=== PATIENT | female | born 1980 | race Caucasian/White ===

== ENCOUNTER 2020-02-19 18:41 | Emergency (ER) | payer BC ==
[2020-02-19 18:45] VITALS: RESP 18; TEMP 97.6
[2020-02-19 19:46] LABS: Basophils % (A) 1 %; Eosinophils # (A) 0.2 k/uL (0-0.7); Eosinophils % (A) 2 %; HCT 44.1 % (34.0-46.0); HGB 15.1 gm/dL (11.4-16.0); Lymphocytes # (A) 1.7 k/uL (1.0-4.8); Lymphocytes % (A) 25 %; MCHC 34.2 g/dL (31.0-37.0); MCV 87.8 fL (80.0-100.0); Mean Platelet Volume 9.4; Monocytes # (A) 0.4 k/uL (0-1.0); Monocytes % (A) 6 %; Neutrophils # (A) 4.5 k/uL (1.3-7.7); Neutrophils % (A) 66 %; Platelet Count 266 k/uL (150-450); RBC 5.03 m/uL (3.80-5.40); RDW 12.9 % (11.5-15.5); WBC 6.8 k/uL (3.8-10.6)
[2020-02-19 19:54] LABS: Partial Thromboplastin Time 24.4 sec (22.0-30.0); Prothrombin Time 10.2 sec (9.0-12.0)
[2020-02-19 19:56] LABS: ALT 53 U/L (4-34); AST 38 U/L (14-36); African American GFR (CKD) >90 (>60 ml/min/1.73 sqM); Albumin 4.9 g/dL (3.5-5.0); Alkaline Phosphatase 64 U/L (38-126); Anion Gap 9 mmol/L; Blood Urea Nitrogen 10 mg/dL (7-17); Calcium 9.8 mg/dL (8.4-10.2); Carbon Dioxide 26 mmol/L (22-30); Chloride 104 mmol/L (98-107); Glucose 96 mg/dL (74-99); Lipase 75 U/L (23-300); Non-African American GFR(CKD) >90 (>60 ml/min/1.73 sqM); Potassium 3.8 mmol/L (3.5-5.1); Sodium 139 mmol/L (137-145); Total Bilirubin 0.8 mg/dL (0.2-1.3)
--- NOTE | 2020-02-19 20:00 | XR ---
EXAMINATION TYPE: XR chest 2V DATE OF EXAM: 02/19/2020 COMPARISON: None INDICATION: Hematemesis TECHNIQUE: Frontal and lateral views of the chest are obtained. FINDINGS: The heart size is normal. The pulmonary vasculature is normal. The lungs are clear. IMPRESSION: 1. No acute pulmonary process.
--- NOTE | 2020-02-19 20:14 | ED ---
General Adult HPI - General Chief complaint: GI Bleed Stated complaint: vomiting blood Time Seen by Provider: 02/19/20 19:07 Source: patient Mode of arrival: ambulatory Limitations: no limitations - History of Present Illness Initial comments: Patient is a 39-year-old female presenting to the emergency Department with complaints of a single episode of hematemesis that occurred about 2 hours prior to arrival. Patient states she woke up and had her normal coffee but then has been feeling an upset stomach for most the day, low appetite. Patient states about 2 hours ago she lay down and felt nausea developing and had a single episode of vomit with "about half a cup of blood" mixed in. She states she only had a single episode, no other episodes of vomiting. She denies ever having this in the past. She denies any abdominal pain, no chest pain. She denies history of GERD. She does not drink alcohol. She does not take blood thinners. She admits to history of cholecystectomy, no other abdominal surgeries. She has no other significant past medical history, she takes no medications, other than ibuprofen for her knee pain. She denies any recent fever or chills. She has no other complaints at this time. - Related Data Home Medications Medication Instructions Recorded Confirmed No Known Home Medications 02/19/20 02/19/20 Allergies Allergy/AdvReac Type Severity Reaction Status Date / Time No Known Allergies Allergy Verified 02/19/20 19:56 Review of Systems ROS Statement: Those systems with pertinent positive or pertinent negative responses have been documented in the HPI. ROS Other: All systems not noted in ROS Statement are negative. Past Medical History Past Medical History: Hyperlipidemia History of Any Multi-Drug Resistant Organisms: None Reported Past Surgical History: Section, Cholecystectomy Past Psychological History: No Psychological Hx Reported Smoking Status: Never smoker Past Alcohol Use History: None Reported Past Drug Use History: None Reported General Exam - General Exam Comments Initial Comments: GENERAL: Patient is well-developed and well-nourished. Patient is nontoxic and in no acute distress. HEAD: Atraumatic, normocephalic. EYES: Pupils equal round and reactive to light, extraocular movements intact, sclera anicteric, conjunctiva are normal. Eyelids were unremarkable. ENT: TMs normal, nares patent, oropharynx clear without exudates. Moist mucous membranes. NECK: Normal range of motion, supple without lymphadenopathy or JVD. LUNGS: Unlabored respirations. Breath sounds clear to auscultation bilaterally and equal. No wheezes rales or rhonchi. HEART: Regular rate and rhythm without murmurs, rubs or gallops. ABDOMEN: Soft, nontender, normoactive bowel sounds. No guarding, no rebound. No masses appreciated. : Deferred MUSCULOSKELETAL: Normal extremities with adequate strength and normal range of motion, no pitting or edema. No clubbing or cyanosis. NEUROLOGICAL: Patient is alert and oriented x 3. Motor and sensory are also intact. Cranial nerves II through XII grossly intact. Symmetrical smile. Normal speech, normal gait. PSYCH: Normal mood, normal affect. SKIN: Warm, Dry, normal turgor, no rashes or lesions noted. Limitations: no limitations Course Vital Signs 02/19/20 02/19/20 18:41 20:50 Temperature 97.6 F 97.6 F Pulse Rate 90 81 Respiratory 18 18 Rate Blood Pressure 141/80 137/97 O2 Sat by Pulse 96 100 Oximetry Medical Decision Making - Medical Decision Making Patient is a 39-year-old female presenting with a single episode of hematemesis about 2 hours prior to arrival. She said no other events of this. Her vital signs are stable upon arrival. She denies taking any medications, no blood thinners, she does not drink alcohol. She denies pain anywhere, including no chest pain or no abdominal pain. Labs are completely unremarkable, stable hemoglobin. Chest x-ray shows no acute process. I discussed these findings with the patient. Patient remained stable the ER, she continues to feel some mild nausea but no pain. I will send her home with some Zofran for additional nausea. She can also follow up with GI. Strict return parameters were discussed with the patient and she verbalized understanding. Case discussed with Dr. Schrader. - Lab Data Result diagrams: 02/19/20 19:37 02/19/20 19:37 Lab Results 02/19/20 02/19/20 02/19/20 Range/Units 19:37 19:37 19:37 WBC 6.8 (3.8-10.6) k/uL RBC 5.03 (3.80-5.40) m/uL Hgb 15.1 (11.4-16.0) gm/dL Hct 44.1 (34.0-46.0) % MCV 87.8 (80.0-100.0) fL MCH 30.0 (25.0-35.0) pg MCHC 34.2 (31.0-37.0) g/dL RDW 12.9 (11.5-15.5) % Plt Count 266 (150-450) k/uL MPV 9.4 Neutrophils % 66 % Lymphocytes % 25 % Monocytes % 6 % Eosinophils % 2 % Basophils % 1 % Neutrophils # 4.5 (1.3-7.7) k/uL Lymphocytes # 1.7 (1.0-4.8) k/uL Monocytes # 0.4 (0-1.0) k/uL Eosinophils # 0.2 (0-0.7) k/uL Basophils # 0.0 (0-0.2) k/uL PT 10.2 (9.0-12.0) sec INR 1.0 (<1.2) APTT 24.4 (22.0-30.0) sec Sodium 139 (137-145) mmol/L Potassium 3.8 (3.5-5.1) mmol/L Chloride 104 (98-107) mmol/L Carbon Dioxide 26 (22-30) mmol/L Anion Gap 9 mmol/L BUN 10 (7-17) mg/dL Creatinine 0.69 (0.52-1.04) mg/dL Est GFR (CKD-EPI)AfAm >90 (>60 ml/min/1.73 sqM) Est GFR (CKD-EPI)NonAf >90 (>60 ml/min/1.73 sqM) Glucose 96 (74-99) mg/dL Calcium 9.8 (8.4-10.2) mg/dL Total Bilirubin 0.8 (0.2-1.3) mg/dL AST 38 H (14-36) U/L ALT 53 H (4-34) U/L Alkaline Phosphatase 64 (38-126) U/L Total Protein 8.0 (6.3-8.2) g/dL Albumin 4.9 (3.5-5.0) g/dL Lipase 75 (23-300) U/L Disposition Clinical Impression: Hematemesis, Nausea Disposition: HOME SELF-CARE Condition: Stable Instructions (If sedation given, give patient instructions): Hematemesis (ED) Additional Instructions: Please return to the Emergency Department if symptoms worsen or any other concerns. May take Zofran as needed for nausea. If symptoms worsen please return to the ER. Follow up with GI doctor as discussed. Is patient prescribed a controlled substance at d/c from ED?: No Referrals: None,Stated [Primary Care Provider] - 1-2 days Luca Trevino MD [STAFF PHYSICIAN] - 1-2 days
[2020-02-19] MEDS ORDERED: ONDANSETRON 4 MG ODT STARTER PACK 2 TAB BTL PO STA (20:36)
[2020-02-19 20:55] VITALS: BP 137/97; PULSE 81
== END 2020-02-19 20:56 | disposition home or self-care (01) ==
LOC: EC 18:41
DX: K92.0 Hematemesis (principal); Z90.49 Acquired absence of other specified parts of digestive tract; Z98.890 Other specified postprocedural states
CPT/HCPCS: 36415; 71046; 80053; 83690; 85025; 85610; 85730; 99285

== ENCOUNTER 2020-05-13 15:54 | Emergency (ER) | payer BC ==
--- NOTE | 2020-05-13 17:36 | ED ---
General Adult HPI - General Source: patient Mode of arrival: ambulatory Limitations: no limitations <Isaiah Pacheco - Last Filed: 05/13/20 17:36> <Solis Sanders - Last Filed: 05/13/20 20:05> - General Chief complaint: Upper Respiratory Infection Stated complaint: COVID+/SOB - History of Present Illness Initial comments: medical screening note: Covid Positive 5 days presenting to the emergency department for a dry cough. has not taken antipyretic since this morning. Denies chest pain but reports mild shortness of breath. (Isaiah Pacheco) - Related Data Previous Rx's Medication Instructions Recorded Dexamethasone 6 mg PO DAILY #7 tablet 05/13/20 guaiFENesin-Coden 100-10MG/5ML 5 - 10 ml PO Q6H PRN 3 Days #120 ml 05/13/20 [Robitussin AC] Allergies Allergy/AdvReac Type Severity Reaction Status Date / Time No Known Allergies Allergy Verified 05/13/20 16:40 Review of Systems ROS Other: All systems not noted in ROS Statement are negative. <Isaiah Pacheco - Last Filed: 05/13/20 17:36> ROS Other: All systems not noted in ROS Statement are negative. <Solis Sanders - Last Filed: 05/13/20 20:05> ROS Statement: Those systems with pertinent positive or pertinent negative responses have been documented in the HPI. Past Medical History Past Medical History: Hyperlipidemia History of Any Multi-Drug Resistant Organisms: None Reported Past Surgical History: Section, Cholecystectomy Past Psychological History: No Psychological Hx Reported Smoking Status: Former smoker Past Alcohol Use History: None Reported Past Drug Use History: None Reported <Isaiah Pacheco - Last Filed: 05/13/20 17:36> General Exam Limitations: no limitations <Isaiah Pacheco - Last Filed: 05/13/20 17:36> - General Exam Comments Initial Comments: General: Well-developed, no distress HEENT: Normocephalic/atraumatic, PERLL, pharynx erythema, TM clear Chest/Lungs: Normal respirations, lungs clear to auscultation, continuous nonproductive cough Cardiac: Regular rate and rhythm Abdomen/GI: Soft nontender, Musculoskeletal: Nontender, full range of motion Skin: Warmth, no rashes or lesions, no diaphoresis Neurologic: AAO x 3, normal gait Psychiatric: Mood and affect normal, judgment normal (Isaiah Pacheco) Course Vital Signs 05/13/20 05/13/20 16:43 19:13 Temperature 102.2 F H 103.1 F H Pulse Rate 106 H 111 H Respiratory 18 20 Rate Blood Pressure 127/85 O2 Sat by Pulse 97 93 L Oximetry Medical Decision Making <Solis Sanders - Last Filed: 05/13/20 20:05> - Medical Decision Making Is a 39-year-old female came to the emergency department for worsening cough and shortness of breath. The patient had an oxygen saturation 94-95% at rest. I do get her up and ambulate her and her oxygen saturation didn't drop into the 90-93 range area and it occasionally would dip down to 91 however would quickly come back up to 94-95 at rest. Chest x-ray was consistent with Coban pneumonia. The patient was given a dose of Decadron here and will be sent home with Decadron 6 g daily. She was also given Robitussin for home. The patient does have a pulse oximeter at home and is going to monitor her pulse ox. I told her that if she got into the 80s that she needed to return emergency from her promptly for reevaluation. I did offer her bamlanivimab however she refused stated that she did not want that medication. Patient was given her first dose of Decadron here along with some Tylenol. We'll follow up with her primary doctor. All questions answered. (Solis Sanders) Disposition <Isaiah Pacheco - Last Filed: 05/13/20 17:36> Is patient prescribed a controlled substance at d/c from ED?: Yes If prescribed controlled substance>3 days was MAPS reviewed?: Prescribed <3 Days <Solis Sanders - Last Filed: 05/13/20 20:05> Clinical Impression: Pneumonia due to COVID-19 virus Disposition: HOME SELF-CARE Condition: Good Instructions (If sedation given, give patient instructions): Coronavirus Disease 2019 (COVID-19) Prescriptions: Dexamethasone 6 mg PO DAILY #7 tablet guaiFENesin-Coden 100-10MG/5ML [Robitussin AC] 5 - 10 ml PO Q6H PRN 3 Days #120 ml PRN Reason: Cough Referrals: None,Stated [Primary Care Provider] - 1-2 days
--- NOTE | 2020-05-13 19:20 | XR ---
EXAMINATION TYPE: XR chest 2V DATE OF EXAM: 05/13/2020 COMPARISON: 02/19/2020. HISTORY: Cough and fever. Covid positive. TECHNIQUE: Frontal and lateral views of the chest are obtained. FINDINGS: There is mild to moderate perihilar and bibasilar patchy opacities. No pleural effusion, o r pneumothorax seen. The cardiac silhouette size is within normal limits. The osseous structures a re intact. IMPRESSION: Bilateral infiltrates.
[2020-05-13] MEDS ORDERED: dexAMETHasone 2 MG TAB PO STA (19:29)
[2020-05-13] MEDS ORDERED: ACETAMINOPHEN TAB 500 MG TAB PO STA (19:29)
[2020-05-13 20:08] VITALS: TEMP 102.8
[2020-05-13 20:24] VITALS: BP 128/90; PULSE 104; RESP 18
== END 2020-05-13 20:24 | disposition home or self-care (01) ==
LOC: EC 15:54
DX: U07.1 COVID-19 (principal); J12.82 Pneumonia due to coronavirus disease 2019; E78.5 Hyperlipidemia, unspecified; Z87.891 Personal history of nicotine dependence
CPT/HCPCS: 71046; 99284; J8540

== ENCOUNTER → 2020-06-06 | Outpatient (CLI) | payer BC ==
--- NOTE | 2020-06-06 12:32 | XR ---
EXAMINATION TYPE: XR knee complete LT DATE OF EXAM: 06/06/2020 COMPARISON: None HISTORY: Chronic knee pain TECHNIQUE: 3 view left knee FINDINGS: Joint spaces are preserved. No joint effusion is evident. No acute fracture or dislocation is evident. Very minimal lateral compartment joint space spurring may be present. A very tiny medial femoral condylar spur may be present. Follow up exams can be performed 7-10 days from acute trauma for continued pain. IMPRESSION: 1. Minimal degenerative joint changes. No acute osseous abnormality is evident.
--- NOTE | 2020-06-06 12:33 | XR ---
EXAMINATION TYPE: XR ankle complete LT DATE OF EXAM: 06/06/2020 COMPARISON: None HISTORY: Chronic pain TECHNIQUE: 3 view left ankle FINDINGS: Ankle mortise is intact. No acute fractures or dislocations are evident. The soft tissues a re normal. Plantar and Achilles tendon calcaneal heel spurs are present. IMPRESSION: 1. No acute osseous abnormality left ankle. 2. Calcaneal heel spurs.
== END | disposition home or self-care (01) ==
LOC: RADXRYALE 09:08
PROVIDERS: ATTEND Physician Assistant Medical
DX: M17.12 Unilateral primary osteoarthritis, left knee (principal); M77.32 Calcaneal spur, left foot

== ENCOUNTER → 2022-11-23 | Outpatient (CLI) | payer BC ==
[2022-11-23 09:04] VITALS: BP 110/71; PULSE 79; RESP 17; TEMP 98.4
--- NOTE | 2022-11-23 09:43 | P.HPOB ---
History of Present Illness H&P Date: 11/23/22 Chief Complaint: The patient is here for her routine gynecologic exam and ma mmogram. This is a 42-year-old with an LMP of 2018. The patient is here to establish with this office. It has been about 8 years since her last pelvic exam. Menstrual periods stopped about 5 years ago. She has a long history of oligomenorrhea since her menarche at age 10. She typically would go about every 1-3 months without a menstrual period. She has had even longer episodes of not having menstrual periods up to more than a year. She denies any significant hot flashes. She has lost over 100 pounds after being diagnosed with type 2 diabetes in February 2022. Review of Systems The patient has lost 100 pounds over the last year. This has been intentional with diet and exercise. She states she lost the weight after being diagnosed with type 2 diabetes in February 2022. She denies respiratory, cardiac, or G.I. problems. Past Medical History Past Medical History: Diabetes Mellitus, GERD/Reflux, Hyperlipidemia Additional Past Medical History / Comment(s): Type 2 diabetes. 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 History of Any Multi-Drug Resistant Organisms: None Reported Past Surgical History: Section, Cholecystectomy Additional Past Surgical History / Comment(s): 2 sections. Past Psychological History: No Psychological Hx Reported Smoking Status: Former smoker Past Alcohol Use History: None Reported Additional Past Alcohol Use History / Comment(s): Quit smoking 2017. Past Drug Use History: None Reported Additional Drug Use History / Comment(s): She has been since 2004. 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 - Past Family History Mother Family Medical History: Cancer Additional Family Medical History / Comment(s): Ovarian and skin cancer. The ovarian cancer was diagnosed in her 30s. Father Family Medical History: Diabetes Mellitus, Hypertension Additional Family Medical History / Comment(s): She has paternal aunts and uncles with diabetes as well. Medications and Allergies Home Medications Medication Instructions Recorded Confirmed Type Cholecalciferol [Vitamin D3 (25 50 mcg PO DAILY 11/23/22 11/23/22 History Mcg = 1000 Iu)] Cyanocobalamin [Vitamin B-12] 1 tab PO DAILY 11/23/22 11/23/22 History Esomeprazole Magnesium [NexIUM] 20 mg PO DAILY 11/23/22 11/23/22 History L.acidoph,Paracasei, B.lactis 1 cap PO DAILY 11/23/22 11/23/22 History [Probiotic] Magnesium 250 mg PO DAILY 11/23/22 11/23/22 History Semaglutide [Ozempic] 1 mg INJ WEEKLY 11/23/22 11/23/22 History Spironolactone 25 mg PO DAILY 11/23/22 11/23/22 History Allergies Allergy/AdvReac Type Severity Reaction Status Date / Time No Known Allergies Allergy Verified 11/23/22 08:56 Exam Vital Signs Temp Pulse Resp BP Pulse Ox 11/23/22 09:00 98.4 F 79 17 110/71 98 Intake and Output 11/22/22 11/23/22 11/23/22 22:59 06:59 14:59 Other: Weight 112.491 kg Height 5 feet 4 inches, weight 248 pounds, BMI 42.6. This is a well-developed well-nourished heavyset white female who is alert and oriented times 3 in no acute distress. HEENT: Within normal limits. NECK: Supple without mass or thyromegaly. CHEST AND LUNGS: Clear to auscultation. HEART: Regular rate and rhythm. BREASTS: Are without mass or discharge. AXILLARY EXAM: Negative for adenopathy. BACK: Negative for CVA tenderness. ABDOMEN: Soft, nontender, without palpable masses. PELVIC EXAM: Normal external genitalia. Cervix and vagina appear normal with mild atrophy. The cervix is somewhat stenotic secondary to atrophy. There is no unusual discharge. There is no evidence of prolapse. The uterus is slightly retroverted, nongravid size and nontender. There are no palpable adnexal masses or tenderness. Bimanual examination is somewhat limited secondary to her size. RECTAL EXAM: Rectovaginal exam is negative for mass or tenderness and is negative for occult blood. EXTREMITIES: Nontender. IMPRESSION: 1. 42-year-old postmenopausal female with normal gynecologic exam. 2. Long history of oligomenorrhea with 5 years of amenorrhea more recently. At this time she is probably postmenopausal, however PCOS with amenorrhea is also possible. 3. Family history of ovarian cancer in her mother who is still alive. PLAN: 1. Pap smear cotest was performed. 2. Self breast awareness was discussed with the patient. We have also discussed symptoms associated with inflammatory breast cancer. 3. Screening mammogram will be done today. 4. Osteoporosis prevention was discussed. I have stressed the importance of adequate calcium, vitamin D and regular exercise. Recommended amounts of calcium and vitamin D were also discussed. 5. Blood tests will include FSH and estradiol. The order slip was given to the patient for this. 6. Pelvic ultrasound was recommended and we will plan on doing this yearly because of her family history of ovarian cancer in her mother. The order slip was given to the patient for this. 7. She was advised to return in one year for her annual well woman exam.
[2022-11-23 16:47] LABS: Follicle Stimulating Hormone 7.2 mIU/mL
[2022-11-23 16:49] LABS: Estradiol <20.0 pg/mL
--- NOTE | 2022-11-24 07:57 | MM ---
Reason for Exam: Screening (asymptomatic). Baseline mammogram. Patient History: Menarche at age 10. First Full-Term at age 27. Postmenopausal. Mother had ovarian cancer, age 35. Risk Values: Janay 5 year model risk: 0.9%. NCI Lifetime model risk: 11.8%. Prior Study Comparison: Patient's first Mammogram. Tissue Density: There are scattered fibroglandular densities. Findings: Analyzed By CAD. There is no suspicious group of microcalcifications or suspicious mass in either breast. Overall Assessment: Negative, BI-RAD 1 Management: Screening Mammogram of both breasts in 1 year. A clinical breast exam by your physician is recommended on an annual basis and results should be correlated with mammographic findings. Note on Janay scores and lifetime risk: 1. A Janay score greater than 3% is considered moderate risk. If this is the case, consider specialist referral to assess eligibility for a risk reducing agent. If overall lifetime risk for the development of breast cancer is 20% or higher, the patient may qualify for future screening with alternating mammogram and breast MRI. Electronically signed and approved by: Kamron Hamilton D.O.
== END ==
LOC: WWCWWP 08:29
PROVIDERS: ATTEND Obstetrics & Gynecology
DX: Z12.31 Encounter for screening mammogram for malignant neoplasm of breast (principal); E11.9 Type 2 diabetes mellitus without complications; N91.1 Secondary amenorrhea; E78.5 Hyperlipidemia, unspecified; K21.9 Gastro-esophageal reflux disease without esophagitis; Z87.891 Personal history of nicotine dependence; Z78.0 Asymptomatic menopausal state; Z90.49 Acquired absence of other specified parts of digestive tract; Z79.84 Long term (current) use of oral hypoglycemic drugs; Z79.85 Long-term (current) use of injectable non-insulin antidiabetic drugs; Z80.41 Family history of malignant neoplasm of ovary
CPT/HCPCS: 77067; 82670; 83001

== ENCOUNTER → 2024-03-06 | Outpatient (CLI) | payer BC ==
[2024-03-06 08:25] VITALS: BP 102/69; PULSE 85; RESP 16; TEMP 97.8
--- NOTE | 2024-03-06 08:50 | P.HPOB ---
History of Present Illness H&P Date: 03/06/24 Chief Complaint: The patient is here for her routine gynecologic exam and ma mmogram. This is a 43-year-old G2, P2 with an LMP of January 2024. She had a long history of oligomenorrhea and was amenorrheic for about 6 years. About 1 year ago she had an FSH which was normal and an estradiol which was low. She did not have the pelvic ultrasound done as recommended for her family history of ovarian cancer in her mother. States the menstrual period that she had in January was normal. She states she lost about 150 pounds over the past couple of years after being diagnosed with diabetes. She is on Mounjaro for her diabetes. In the past her menstrual periods became more regular when she did lose weight. She denies any significant hot flashes. Review of Systems She has lost about 150 pounds over the past 2 years and about 54 pounds in the past year. She attributes this to eating better and she has also been on Mounjaro for her diabetes. She denies respiratory, cardiac, or GI problems. Past Medical History Past Medical History: Diabetes Mellitus, GERD/Reflux, Hyperlipidemia Additional Past Medical History / Comment(s): Type 2 diabetes. 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 History of Any Multi-Drug Resistant Organisms: None Reported Past Surgical History: Section, Cholecystectomy Additional Past Surgical History / Comment(s): 2 sections. Past Psychological History: No Psychological Hx Reported Smoking Status: Former smoker Past Alcohol Use History: None Reported Additional Past Alcohol Use History / Comment(s): Quit smoking 2017. Past Drug Use History: None Reported Additional Drug Use History / Comment(s): She has been since 2004. 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 - Past Family History Mother Family Medical History: Cancer Additional Family Medical History / Comment(s): Ovarian and skin cancer. The ovarian cancer was diagnosed in her 30s. Father Family Medical History: Diabetes Mellitus, Hypertension Additional Family Medical History / Comment(s): She has paternal aunts and uncles with diabetes as well. Medications and Allergies Home Medications Medication Instructions Recorded Confirmed Type Cholecalciferol [Vitamin D3 (25 50 mcg PO DAILY 11/23/22 11/23/22 History Mcg = 1000 Iu)] Cyanocobalamin [Vitamin B-12] 1 tab PO DAILY 11/23/22 11/23/22 History Magnesium 250 mg PO DAILY 11/23/22 11/23/22 History Tirzepatide [Mounjaro] 10 mg SQ WEEKLY 03/06/24 03/06/24 History Allergies Allergy/AdvReac Type Severity Reaction Status Date / Time No Known Allergies Allergy Verified 03/06/24 08:10 Exam Vital Signs Temp Pulse Resp BP Pulse Ox 03/06/24 08:19 97.8 F 85 16 102/69 97 Intake and Output 03/05/24 03/06/24 03/06/24 22:59 06:59 14:59 Other: Weight 87.997 kg Height 5 feet 4 inches, weight 194 pounds, BMI 33.3. This is a well-developed well-nourished white female who is alert and oriented times 3 in no acute distress. HEENT: Within normal limits. NECK: Supple without mass or thyromegaly. CHEST AND LUNGS: Clear to auscultation. HEART: Regular rate and rhythm. BREASTS: Are without mass or discharge. AXILLARY EXAM: Negative for adenopathy. BACK: Negative for CVA tenderness. ABDOMEN: Soft, nontender, without palpable masses. PELVIC EXAM: Normal external genitalia with minimal atrophy. Cervix and vagina appear normal with minimal atrophy. There is no unusual discharge. There is no evidence of prolapse. The uterus is midposition, nongravid size and nontender. There are no palpable adnexal masses or tenderness. RECTAL EXAM: Rectovaginal exam is negative for mass or tenderness and is negative for occult blood. EXTREMITIES: Nontender. IMPRESSION: 1. 43-year-old female with normal gynecologic exam. 2. 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 3. Family history of ovarian cancer in her mother. PLAN: 1. Pap smear was deferred since she had a negative Pap smear cotest on 11/23/2022. 2. Self breast awareness was discussed with the patient. We have also discussed symptoms associated with inflammatory breast cancer. 3. Screening mammogram will be done today. 4. I have recommended repeating the FSH and estradiol blood tests. The order slip was given to the patient for this. 5. I have again recommended yearly pelvic ultrasounds. It will also be helpful to look at the endometrial thickness. We will consider doing an endometrial biopsy if there is thickening of the endometrium and will correlate this with her FSH and estradiol. The order for her pelvic ultrasound was given to the patient 6. Osteoporosis prevention was discussed. I have stressed the importance of adequate calcium, vitamin D and regular exercise. Recommended amounts of calcium and vitamin D were also discussed. 7. She was advised to return in one year for her annual well woman exam and as needed.
--- NOTE | 2024-03-06 09:14 | MM ---
Reason for Exam: Screening (asymptomatic). Last mammogram was performed 1 year(s) and 3 month(s) ago. Patient History: Menarche at age 10. First Full-Term at age 27. Postmenopausal. Mother had ovarian cancer, age 35. Risk Values: Janay 5 year model risk: 0.9%. NCI Lifetime model risk: 11.7%. Prior Study Comparison: 11/23/2022 Bilateral MG screening mammo w CAD, [facility]. Tissue Density: There are scattered areas of fibroglandular density. Findings: Analyzed By CAD. Benign-appearing bilateral axillary lymph nodes are present. There is no suspicious group of microcalcifications or new suspicious mass in either breast. Overall Assessment: Negative, BI-RAD 1 Management: Screening Mammogram of both breasts in 1 year. . Patient should continue monthly self-breast exams. A clinical breast exam by your physician is recommended on an annual basis. This exam should not preclude additional follow-up of suspicious palpable abnormalities. Note on Janay scores and lifetime risk: 1. A Janay score greater than 3% is considered moderate risk. If this is the case, consider specialist referral to assess eligibility for a risk reducing agent. 2. If overall lifetime risk for the development of breast cancer is 20% or higher, the patient may qualify for future screening with alternating mammogram and breast MRI. [facility], , 03/06/2024 9:10 AM. Electronically signed and approved by: Shiva Barajas M.D.
[2024-03-06 16:41] LABS: Follicle Stimulating Hormone 7.9 mIU/mL
--- NOTE | 2024-03-07 13:09 | P.PN ---
Progress Note - Text Progress Note Date: 03/07/24 OUTPATIENT FOLLOW-UP NOTE TEST(S)/RESULTS: Test results from 03/06/2024 include FSH of 7.9 and estradiol of 578 which is elevated. METHOD OF NOTIFICATION: The patient was notified by phone on 03/07/2024 PATIENT COMMENTS: The patient denies taking any form of estrogen or other hormones or supplements for menopausal symptoms. DIAGNOSIS: Episode of menstrual-like vaginal bleeding after years of amenorrhea. Significantly elevated estradiol. Differential diagnosis will include elevations from liver disease, thyroid disorder, and possible estrogen secreting tumor such as a sex cord stromal tumor such as a granulosa cell tumor. DISCUSSION: We have discussed the possible causes for the elevated estradiol. She states she had blood work done with Dr. Beyer in the about 2 months ago. Blood tests collected on 01/07/2024 was obtained from his office. This included CBC and comprehensive CHEM panel which were unremarkable. Thyroid screen was also normal. AST and ALT were also normal. The patient states she will do a home home test to rule that out. She is also scheduled for an ultrasound next week and at that time we can evaluate for ovarian masses. PLAN: As above.
== END ==
LOC: WWCWWP 07:46
PROVIDERS: ATTEND Obstetrics & Gynecology
DX: N91.5 Oligomenorrhea, unspecified (principal); Z80.41 Family history of malignant neoplasm of ovary
CPT/HCPCS: 77063; 77067; 82670; 83001

== ENCOUNTER → 2024-03-15 | Outpatient (CLI) | payer BC ==
--- NOTE | 2024-03-15 07:51 | US ---
EXAMINATION TYPE: US pelvis complete transvag DATE OF EXAM: 03/15/2024 COMPARISON: NONE CLINICAL INDICATION: Female, 43 years old with history of N91.5 OLIGOMENORRHEA, UNSPECIFIED; pt state s she went years without a period and then had one in Jan 2024. . 2 c-sections TECHNIQUE: Transvaginal (TV) and Transabdominal (TA) . Doppler imaging: Not performed. FINDINGS: Date of LMP: 01/2024 EXAM MEASUREMENTS: Uterus: 5.8 x 6.0 x 4.8 cm Endometrial Stripe: Rt: 0.8cm Lt: 1.0 cm Right Ovary: 2.1 x 2.1 x 1.9 cm Left Ovary: 2.9 x 1.9 x 1.8 cm 1. Uterus: Retroverted wnl 2. Endometrium: both appears wnl 3. Right Ovary: wnl 4. Left Ovary: cystic area seen measuring 1.3 x 1.3 x 1.4cm. Hypoechoic area seen measuring 2.2 x 1. 0 x 1.6cm 5. Bilateral Adnexa: wnl 6. Posterior cul-de-sac: wnl IMPRESSION: 1. No evidence for acute process. 2. Endometrium within normal limits for thickness. 3. Hypoechoic probable involuting hemorrhagic cyst. Consider short-term follow-up in 3 months to ens ure resolution. [facility], , 03/15/2024 7:48 AM
== END | disposition home or self-care (01) ==
LOC: RADUSWWP 07:06
PROVIDERS: ATTEND Obstetrics & Gynecology
DX: N91.5 Oligomenorrhea, unspecified (principal)
CPT/HCPCS: 76830; 76856